=== PATIENT | male | born 1980 | race Caucasian/White ===

== ENCOUNTER 2018-05-11 20:15 | Emergency (ER) | payer OTHER ==
[2018-05-11] MEDS ORDERED: PROPARACAINE HCL 0.5% OPTH OP ONE (20:28)
--- NOTE | 2018-05-11 20:49 | ED Physician Documentation ---
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 I have something in my Rt eye" Chief Complaint: Eye Problems Onset: hours (2) Associated symptoms: pain, sensitivity to light, foreign body Location: right eye Severity: mild Apparent Injury: no Context: exposure to welding arc Where: home Other Injuries: denies: neck, head, back Further Comments: no - ROS CONST: denies: no problems MS/SKIN/LYMPH: denies: weakness CVS/RESP: denies: none EYES/ENT: denies: none NEURO: denies: headache - PAST HX Past History: denies: none Allergies/Adverse Reactions: Allergies Allergy/AdvReac Type Severity Reaction Status Date / Time No Known Allergies Allergy Verified 05/11/18 20:57 Home Medications: Ambulatory Orders Medication Instructions Recorded NK 05/11/18 - SOCIAL HX Smoking History: cigarettes Alcohol Use: none Drug Use: none - FAMILY HX Family History: none - VITAL SIGNS Vital Signs: Vital Signs Temp Pulse Resp BP Pulse Ox 97.2 F L 63 16 133/77 98 05/11/18 20:20 05/11/18 20:20 05/11/18 20:20 05/11/18 20:20 05/11/18 20:20 - REVIEWED ASSESSMENTS Nursing Assessment Reviewed: Yes Vitals Reviewed: Yes ED Results Lab/Radiology - Orders Orders: ED Orders Category Date Time Status Proparacaine HCl [Ophthaine] Med 05/11/18 20:28 Once 2 drop OP NOW ONE Eye Problem Physical Exam - Physical Exam General Appearance: no acute distress, alert Examined with Slit Lamp: No Visual Acuity: see nursing assessment Eyelids: nml inspection Conjunctiva and Sclera: nml inspection Corneas: fluorescein dye uptake (R), examined with fluorescein (R), other (right corneal abrasion) EOM: intact Pupils: equal Anterior Chambers: nml inspection Post Segments: other (deferred) Head/ENT: nml inspection Skin: nml color, warm Respiratory: no resp distress, breath sounds normal CVS: reg rate & rhythm, heart sounds normal Abdomen: non-tender Neuro/Psych: oriented x3 Discharge Clincal Impression: Right corneal abrasion Qualifiers: Encounter type: initial encounter Qualified Code(s): S05.01XA - Injury of conjunctiva and corneal abrasion without foreign body, right eye, initial encounter Referrals: Primary Doctor,No [Primary Care Provider] - 2 Days Additional Instructions: Go immediately to an Sericulture Teacher if vision changes or eye pain increases at all. Decision to Admit: NO Date of Decison to Admit: 05/11/18 Decision Time: 21:13
[2018-05-11 21:58] VITALS: BP 106/70
== END 2018-05-11 21:20 | disposition home or self-care (01) ==
LOC: ED 20:15
DX: S05.01XA Injury of conjunctiva and corneal abrasion without foreign body, right eye, initial encounter (principal); W22.8XXA Striking against or struck by other objects, initial encounter; Y92.9 Unspecified place or not applicable; Y93.H3 Activity, building and construction; Y99.9 Unspecified external cause status
CPT/HCPCS: A9270-GY

== ENCOUNTER 2019-05-16 14:48 | Emergency (ER) | payer OTHER ==
[2019-05-16] MEDS ORDERED: Lidocaine 1% 5ml 5 ML ONE (14:55)
[2019-05-16 14:59] VITALS: BP 166/93
[2019-05-16] MEDS: DIPH,PERTUSS(ACELL),TET VAC/PF 0.5 ML DISP.SYRIN IM ONE (15:08)
--- NOTE | 2019-05-16 15:08 | ED Physician Documentation ---
General Adult - HISTORIAN Historian: patient - HPI Stated Complaint: laceration Chief Complaint: Laceration/Recheck/Suture Onset: minutes (30) Timing: still present Severity: mild Further Comments: yes (He was intalling a fan/light and he got "a little shock and pulled my hand away and the fan cut it" . No LOC) - ROS CONST: no problems - PAST HX Past History: none Immunizations: tetanus Allergies/Adverse Reactions: Allergies Allergy/AdvReac Type Severity Reaction Status Date / Time No Known Allergies Allergy Verified 05/16/19 15:12 Home Medications: Ambulatory Orders Medication Instructions Recorded NK 05/11/18 - SOCIAL HX Smoking History: non-smoker Alcohol Use: none Drug Use: none - FAMILY HX Family History: No - VITAL SIGNS Vital Signs: Vital Signs Temp Pulse Resp BP Pulse Ox 98.0 F 81 20 166/93 98 05/16/19 14:56 05/16/19 14:56 05/16/19 14:56 05/16/19 14:56 05/16/19 14:56 - REVIEWED ASSESSMENTS Nursing Assessment Reviewed: Yes Vitals Reviewed: Yes Procedures Wound Location: upper extremity Wound's Depth, Shape: superficial Wound Explored: clean Anesthesia: 1% Lidocaine Wound Repaired With: sutures Suture Size/Type: 4:0 Number of Sutures: 6 ED Results Lab/Radiology - Orders Orders: ED Orders Category Date Time Status Diph,Pertuss(Acell),Tet Vac/Pf [Adacel] Med 05/16/19 14:59 Discontinued 0.5 ml IM .ONCE ONE Lidocaine 1% 5ml [Xylocaine] 5 ml Med 05/16/19 14:55 Discontinued .ROUTE .STK-MED EKG WITH COMPARISON Stat Ther 05/16/19 Ordered General Adult Physical Exam - PHYSICAL EXAM GENERAL APPEARANCE: no distress EENT: eye inspection normal, no signs of dehydration NECK: normal inspection RESPIRATORY: no resp distress, chest non-tender CVS: reg rate & rhythm ABDOMEN: soft BACK: normal inspection SKIN: warm/dry, other (right hand dorsal side 3 cm half lou shape - pulses + cap refill + sensation + Breakfast And Room Attendant equal ) EXTREMITIES: non-tender, normal range of motion, no evidence of injury, no edema NEURO: oriented X3 Discharge Clincal Impression: Laceration Referrals: Primary Doctor,No [Primary Care Provider] - 2 Days Comments: 1. Keep area clean and dry 2. Follow up with PCP in 7-10 days fo 6 suture removal 3. Return to for any increased concerns Condition: Stable Disposition: 01 HOME, SELF-CARE Decision to Admit: NO Date of Decison to Admit: 05/16/19 Decision Time: 15:48
== END 2019-05-16 15:48 | disposition home or self-care (01) ==
LOC: ED 14:48
DX: S61.411A Laceration without foreign body of right hand, initial encounter (principal); W86.8XXA Exposure to other electric current, initial encounter
CPT/HCPCS: 12002; 90471; 90715; 93005; 96372; 99282; 99284